=== PATIENT | male | born 1995 | race Caucasian/White ===

== ENCOUNTER 2017-03-12 12:19 | Emergency (ER) | payer MEDICAID, OTHER ==
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
== END 2017-03-12 13:07 | disposition home or self-care (01) ==
LOC: JP.ED 12:19
DX: S60.812A Abrasion of left wrist, initial encounter (principal); S30.811A Abrasion of abdominal wall, initial encounter; S00.411A Abrasion of right ear, initial encounter; F17.210 Nicotine dependence, cigarettes, uncomplicated; V49.88XA Car occupant (driver) (passenger) injured in other specified transport accidents, initial encounter; Y92.410 Unspecified street and highway as the place of occurrence of the external cause
CPT/HCPCS: 99284; 99285

== ENCOUNTER 2023-04-13 14:15 | Emergency (ER) | payer MEDICAID | END 2023-04-13 17:24 | LOC: JP.ED 14:15 | DX: S61.411A Laceration without foreign body of right hand, initial encounter (principal); F17.210 Nicotine dependence, cigarettes, uncomplicated; W26.8XXA Contact with other sharp object(s), not elsewhere classified, initial encounter | CPT/HCPCS: 73130-26-RT; 73130-RT; 99284 ==